=== PATIENT | female | born 2000 | race Caucasian/White ===

== ENCOUNTER 2023-07-18 12:57 | Emergency (ER) | payer OTHER ==
[~2023-07-18] VITALS: Ht 157.5 cm; Wt 54.4 kg
[2023-07-18] MEDS ORDERED: DUI500 PO (15:30)
== END 2023-07-18 16:04 | disposition home or self-care (01) ==
LOC: ER 12:57
PROVIDERS: General Practice
DX: R07.0 Pain in throat (principal); Z20.822 Contact with and (suspected) exposure to COVID-19
CPT/HCPCS: 36415; 96372; 99284; J1885